=== PATIENT | female | born 1995 | race African-American/Black ===

== ENCOUNTER 2018-07-29 19:05 | Emergency (ER) | payer OTHER ==
[~2018-07-29] VITALS: Ht 157.5 cm; Wt 105.7 kg
[2018-07-29] MEDS ORDERED: HYDROcodone/APAP 5/325MG 1 TAB TABLET PO ONE (19:45)
[2018-07-29] MEDS ORDERED: HYDR-3135 PO (20:14)
[2018-07-29 20:15] VITALS: BP 117/62
--- NOTE | 2018-07-29 20:30 | PHYS DOC ---
Past Medical History Past Medical History: Anxiety, Depression Past Surgical History: No Surgical History Alcohol Use: None Drug Use: Benzodiazepine Adult General Chief Complaint Chief Complaint: ANKLE PROBLEM HPI HPI Patient is a 23 year old female presents with left ankle pain/ injury after twisting ankle during tennis match earlier this afternoon. Patient with tenderness swelling to left lateral malleolus. Pain with palpation with ambulation. Denies associated pain or injury complaints. No medications or therapy is attempted prior to ED arrival. I just [] Review of Systems Review of Systems ROS as per history of present illness All other systems were reviewed and found to be within normal limits, except as documented in this note. Current Medications Current Medications Current Medications Medications (Trade) Dose Ordered Sig/Remy Start Time Stop Time Status Last Admin Dose Admin Acetaminophen/ Hydrocodone Bitart (Lortab 5/325) 1 tab 1X ONCE 07/29/18 19:45 07/29/18 19:46 DC 07/29/18 19:48 1 TAB Allergies Allergies Allergies Coded Allergies Type Severity Reaction Last Updated Verified No Known Drug Allergies 07/29/18 No Physical Exam Physical Exam Constitutional: Well developed, no acute distress, non-toxic appearance. [] HENT: Normocephalic, atraumatic, bilateral external ears normal, oropharynx moist, no oral exudates, nose normal. [] Extremities: Left ankle, no obvious deformity, swelling, tenderness over lateral malleolus. Limited range of motion secondary to pain. No ligamentous testing secondary discomfort.[] Neurologic: Alert and oriented X 3, normal motor function, normal sensory function, no focal deficits noted. [] Psychologic: Affect normal, judgement normal, mood normal. [] Current Patient Data Vital Signs Vital Signs Date Time Temp Pulse Resp B/P (MAP) Pulse Ox O2 Delivery O2 Flow Rate FiO2 07/29/18 19:48 16 Room Air 07/29/18 19:16 98.3 86 125/72 (89) 100 98.3 EKG EKG [] Radiology/Procedures Radiology/Procedures [left ankle x-ray: No obvious deformity on preliminary ED review.] Course & Med Decision Making Course & Med Decision Making Pertinent Labs and Imaging studies reviewed. (See chart for details) [Patient placed in [place] given crutches. Instructed to remain nonweightbearing and follow-up PCP or orthopedics] Al Disclaimer Dragon Disclaimer This electronic medical record was generated, in whole or in part, using a voice recognition dictation system. Departure Departure Impression: Primary Impression: Left ankle sprain Disposition: 01 HOME, SELF-CARE Condition: GOOD Patient Instructions: Ankle Sprain, Pevb-it-Lugn Additional Instructions: Please wear splint, use crutches take ibuprofen for pain in hydrocodone as needed for additional relief. Do not attempt to bear weight if painful. Follow- up with your PCP for reevaluation. Scripts Hydrocodone/Apap 10-325 (NORCO 10-325 TABLET) 1 Each Tablet 1 TAB PO Q8HRS PRN for PAIN MDD 6, #10 TAB 0 Refills Prov: ADRIANA ENGLAND DO 07/29/18 ADRIANA ENGLAND DO Jul 29, 2018 20:29
--- NOTE | 2018-07-29 20:50 | RAD ---
Indication:PLAYING TENNIS TODAY AND INJURED LEFT ANKLE. SWELLING AND PATIENT SAY PAIN ON LATERAL ASPECT OF ANKLE. TECHNIQUE: 3 views of the left ankle COMPARISON:None FINDINGS/ impression: No acute fracture or dislocation. Moderate soft tissue swelling at the ankle. Ankle mortise is intact. Electronically signed by: Florian Godwin DO (07/29/2018 8:47 PM) [employer]
== END 2018-07-29 20:17 | disposition home or self-care (01) ==
LOC: ER 19:05
DX: S93.402A Sprain of unspecified ligament of left ankle, initial encounter (principal); X50.1XXA Overexertion from prolonged static or awkward postures, initial encounter; Y93.73 Activity, racquet and hand sports; Y92.89 Other specified places as the place of occurrence of the external cause; Y99.8 Other external cause status
CPT/HCPCS: 29515; 73610; 99283-25